=== PATIENT | male | born 1960 | race Hispanic/Latino ===

== ENCOUNTER 2023-04-20 23:08 | Observation (INO) | payer BC ==
[~2023-04-20] VITALS: Ht 165.1 cm; Wt 83.7 kg
[2023-04-20 23:24] LABS: BASOPHILS # (AUTO) 0.08 K/uL (0.00-0.20); BASOPHILS % (AUTO) 0.7 % (0.0-5.0); EOSINOPHILS # (AUTO) 0.26 K/uL (0.00-0.70); EOSINOPHILS % (AUTO) 2.4 % (0.0-8.0); HEMATOCRIT 41.5 % (42-54); IMMATURE GRANULOCYTE ABSOLUTE 0.06 K/uL (0-1); LYMPHOCYTES # (AUTO) 3.9 K/uL (1.0-4.8); LYMPHOCYTES % (AUTO) 36.1 % (21.0-51.0); MEAN CORPUSCULAR HEMOGLOBIN 31.8 pg (27.0-33.0); MEAN CORPUSCULAR HGB CONC 34.2 g/dL (32.0-36.0); MONOCYTES # (AUTO) 1.1 K/uL (0.1-1.0); MONOCYTES % (AUTO) 10.1 % (3.0-13.0); NEUTROPHILS # (AUTO) 5.4 K/uL (1.8-7.7); NEUTROPHILS % (AUTO) 50.1 % (40.0-77.0); PLATELET COUNT (AUTO) 268 K/uL (130-400); RED BLOOD CELL COUNT(AUTO) 4.46 MIL/uL (4.50-6.20); RED CELL DISTRIBUTION WIDTH 11.8 % (11.0-15.5); WHITE BLOOD COUNT (AUTO) 10.8 K/uL (4.8-10.8)
[2023-04-20 23:35] LABS: CREATININE 1.1 mg/dL (0.5-1.5); POTASSIUM 4.2 mmol/L (3.5-5.1)
[2023-04-20 23:38] LABS: INR 0.93 (0.85-1.15); PROTHROMBIN TIME 10.7 SEC (9.6-11.6)
[2023-04-20 23:39] LABS: PARTIAL THROMBOPLASTIN TIME 27.9 SEC (26.3-35.5)
[2023-04-20 23:47] LABS: ALBUMIN 3.9 g/dL (3.5-5.0); BILIRUBIN,TOTAL 0.7 mg/dL (0.2-1.0); TOTAL PROTEIN, SERUM 7.8 g/dL (6.0-8.3)
[2023-04-20] MEDS: NITROGLYCERIN 0.4 MG SL TAB SL PRN (23:59)
[2023-04-21] VITALS (12 sets, daily range): BP systolic 120–147; BP diastolic 65–88; PULSE 64–80; RESP 17–18
[2023-04-21] MEDS ORDERED: CLOPIDOGREL 300MG TAB PO ONE
[2023-04-21] MEDS ORDERED: ASPIRIN 81MG CHEW TAB PO ONE
[2023-04-21] MEDS: NITROGLYCERIN 0.4 MG SL TAB SL PRN (00:15)
[2023-04-21] MEDS ORDERED: ENOXAPARIN SODIUM 40 MG/0.4 ML SYRINGE SQ ONE (00:30)
[2023-04-21] MEDS ORDERED: MORPHINE 4 MG SYG IV PRN (00:30)
[2023-04-21] MEDS ORDERED: MORPHINE 2 MG SYG IV PRN (00:30)
[2023-04-21] MEDS ORDERED: ONDANSETRON 4MG INJ IV PRN (00:30)
[2023-04-21] MEDS ORDERED: ACETAMINOPHEN 325 MG TAB PO PRN ×2 (00:30)
[2023-04-21] MEDS: NITROGLYCERIN 1GM OINT 1 INCH/1GM TD SCH ×4 (00:30→19:55)
[2023-04-21] MEDS ORDERED: ROSU10TA28 PO (00:43)
[2023-04-21] MEDS ORDERED: NITR0.3T11 SL (00:43)
[2023-04-21] MEDS ORDERED: METO25TA6 PO (00:43)
[2023-04-21] MEDS ORDERED: LOSA50TA64 PO (00:43)
[2023-04-21] MEDS: ASPIRIN 81MG CHEW TAB PO SCH (08:49)
[2023-04-21] MEDS ORDERED: METOPROLOL SUCCINATE 25 MG TAB.SR.24H PO SCH (09:00)
[2023-04-21] MEDS: CLOPIDOGREL 75MG TAB PO SCH (09:00)
[2023-04-21] MEDS: FAMOTIDINE 20MG TAB PO SCH (09:00)
[2023-04-21] MEDS: ENOXAPARIN SODIUM 40 MG/0.4 ML SYRINGE SQ SCH (09:00)
[2023-04-21] MEDS ORDERED: LIDOCAINE HCL 400MG/20ML VIAL ONE (10:33)
[2023-04-21] MEDS ORDERED: VERAPAMIL HCL 2.5 MG/ML VIAL ONE (10:34)
[2023-04-21] MEDS ORDERED: IOHEXOL-350 75 ML VIAL IV ONE ×3 (10:34→11:43)
[2023-04-21] MEDS ORDERED: MIDAZOLAM HCL 1 MG/ML 2ML VIAL ONE (10:34)
[2023-04-21] MEDS ORDERED: HEPARIN 10,000 UNIT/10ML (1,000 UNIT/ML) VIAL ONE (10:34)
[2023-04-21] MEDS ORDERED: NITROGLYCERIN 50MG VIAL ONE (10:55)
[2023-04-21] MEDS ORDERED: FENTANYL CITRATE PF 50 MCG/1 ML 2ML VIAL ONE (11:01)
[2023-04-21] MEDS ORDERED: CLOPIDOGREL 300MG TAB ONE (12:31)
[2023-04-21] MEDS: METOPROLOL SUCCINATE 25 MG TAB.SR.24H PO SCH ×2 (13:00→19:52)
[2023-04-21] MEDS ORDERED: 0.9%NACL 1000ML 1,000 ML IV SCH (13:00)
[2023-04-21] MEDS ORDERED: ATORVASTATIN 40 MG TABLET PO SCH (21:00)
[2023-04-22] VITALS: BP 118/72; PULSE 84; RESP 18
[2023-04-22 04:00] VITALS: BP 132/83; PULSE 70; RESP 18
[2023-04-22 05:24] LABS: BASOPHILS # (AUTO) 0.04 K/uL (0.00-0.20); BASOPHILS % (AUTO) 0.5 % (0.0-5.0); EOSINOPHILS # (AUTO) 0.11 K/uL (0.00-0.70); EOSINOPHILS % (AUTO) 1.4 % (0.0-8.0); HEMATOCRIT 37.5 % (42-54); IMMATURE GRANULOCYTE ABSOLUTE 0.03 K/uL (0-1); LYMPHOCYTES # (AUTO) 1.8 K/uL (1.0-4.8); LYMPHOCYTES % (AUTO) 23.6 % (21.0-51.0); MEAN CORPUSCULAR HEMOGLOBIN 31.7 pg (27.0-33.0); MEAN CORPUSCULAR HGB CONC 33.9 g/dL (32.0-36.0); MEAN CORPUSCULAR VOLUME 93.5 fL (79-99); MONOCYTES # (AUTO) 0.8 K/uL (0.1-1.0); MONOCYTES % (AUTO) 10.9 % (3.0-13.0); NEUTROPHILS # (AUTO) 4.9 K/uL (1.8-7.7); NEUTROPHILS % (AUTO) 63.2 % (40.0-77.0); PLATELET COUNT (AUTO) 219 K/uL (130-400); RED BLOOD CELL COUNT(AUTO) 4.01 MIL/uL (4.50-6.20); RED CELL DISTRIBUTION WIDTH 11.9 % (11.0-15.5); WHITE BLOOD COUNT (AUTO) 7.7 K/uL (4.8-10.8)
[2023-04-22] MEDS: NITROGLYCERIN 1GM OINT 1 INCH/1GM TD SCH ×2 (05:28→16:30)
[2023-04-22 05:53] LABS: MAGNESIUM 2.2 mg/dL (1.80-2.40); PHOSPHORUS 3.4 mg/dL (2.5-4.9)
[2023-04-22 08:00] VITALS: O2SAT 96
[2023-04-22 08:06] VITALS: BP 117/69; PULSE 76; RESP 17
[2023-04-22] MEDS ORDERED: Nitroglycerin 0.4MG Sl Tab SL (08:12)
[2023-04-22] MEDS ORDERED: CLOP-31 PO (08:12)
[2023-04-22] MEDS ORDERED: METO25TA3 PO (08:12)
[2023-04-22] MEDS ORDERED: ATOR40TA69 PO (08:12)
[2023-04-22] MEDS ORDERED: ASPI-1005 PO (08:12)
[2023-04-22] MEDS: CLOPIDOGREL 75MG TAB PO SCH (09:36)
[2023-04-22] MEDS: METOPROLOL SUCCINATE 25 MG TAB.SR.24H PO SCH (09:36)
[2023-04-22] MEDS: ASPIRIN 81MG CHEW TAB PO SCH (09:37)
[2023-04-22] MEDS: FAMOTIDINE 20MG TAB PO SCH (09:37)
[2023-04-22] MEDS: ENOXAPARIN SODIUM 40 MG/0.4 ML SYRINGE SQ SCH (09:38)
[2023-04-22 12:00] VITALS: BP 122/79; PULSE 85; RESP 18
[2023-04-22 16:12] VITALS: BP 125/63; PULSE 62; RESP 18
== END 2023-04-22 16:50 | disposition home or self-care (01) ==
LOC: EDH 23:08 → INTOOBSV 04-21 00:15 → EDHIP 04-21 00:15 → 4CH 04-21 02:18
PROVIDERS: ADMIT Internal Medicine; ATTEND Internal Medicine
DX: I24.9 Acute ischemic heart disease, unspecified (principal); I10 Essential (primary) hypertension; E11.9 Type 2 diabetes mellitus without complications; E78.5 Hyperlipidemia, unspecified; Z79.02 Long term (current) use of antithrombotics/antiplatelets; Z79.82 Long term (current) use of aspirin; Z79.899 Other long term (current) drug therapy; Z51.5 Encounter for palliative care; X50.0XXA Overexertion from strenuous movement or load, initial encounter; Y92.59 Other trade areas as the place of occurrence of the external cause; Y93.89 Activity, other specified; Y99.0 Civilian activity done for income or pay
CPT/HCPCS: 99285; 84484 ×4; 80053; 85025 ×2; 85610; 85730; 36415 ×2; 71045; 93005 ×2; 93458; 96374; 96372 ×2; 83880; 85347; 83735; 84100; 80061; 80048; C1769 ×3; C1887 ×3; C1894 ×4; C1874; C1760; C1725; J3010; J3490 ×3; J2270 ×2; J1644 ×3; J2250; J1650 ×2; Q9967 ×3; C9600; G0378 ×2; 99156; 99157

== ENCOUNTER 2024-11-23 01:16 | Emergency (ER) | payer BC ==
[~2024-11-23] VITALS: Ht 157.5 cm; Wt 93.9 kg
[~2024-11-23 01:16] MED LIST: ASPI-1005 PO; ATOR40TA69 PO; CLOP-31 PO; METO25TA3 PO; Nitroglycerin 0.4MG Sl Tab SL
[2024-11-23 01:18] VITALS: TEMP 97.8
[2024-11-23 01:59] LABS: BASOPHILS # (AUTO) 0.05 K/uL (0.00-0.20); BASOPHILS % (AUTO) 0.7 % (0.0-5.0); EOSINOPHILS % (AUTO) 1.4 % (0.0-8.0); IMMATURE GRANULOCYTE ABSOLUTE 0.04 K/uL (0-1); LYMPHOCYTES # (AUTO) 1.3 K/uL (1.0-4.8); LYMPHOCYTES % (AUTO) 17.1 % (21.0-51.0); MEAN CORPUSCULAR HEMOGLOBIN 32.8 pg (27.0-33.0); MEAN CORPUSCULAR HGB CONC 35.3 g/dL (32.0-36.0); MONOCYTES # (AUTO) 0.8 K/uL (0.1-1.0); MONOCYTES % (AUTO) 10.3 % (3.0-13.0); NEUTROPHILS # (AUTO) 5.2 K/uL (1.8-7.7); PLATELET COUNT (AUTO) 210 K/uL (130-400); RED CELL DISTRIBUTION WIDTH 12.3 % (11.0-15.5); WHITE BLOOD COUNT (AUTO) 7.4 K/uL (4.8-10.8)
[2024-11-23 02:05] LABS: CREATININE 0.8 mg/dL (0.5-1.3); POTASSIUM 3.4 mmol/L (3.5-5.1)
[2024-11-23] MEDS: ketOROlac 15MG/ML VIAL (15MG/ML) IM ONE (03:26)
[2024-11-23] MEDS: ORPHENADRINE 60MG/2ML IM ONE (03:27)
--- NOTE | 2024-11-23 04:24 | ERN ---
General Chief Complaint: Shoulder Injury/Pain Stated Complaint: RT SHOULDER PAIN Time Seen by MD: 01:19 Time Seen by Midlevel: 01:19 Source: patient History of Present Illness Initial Comments 64-year-old male who presents to the emergency department due to right shoulder pain onset 3 hours. Patient denies any chest pain, shortness of breath, numbness tingling or further associated symptoms. PMHx CAD, hypercholesterolemia, HTN Allergies: Coded Allergies: No Known Drug Allergies (Unverified Allergy, Unknown, 04/20/23) Home Meds Active Scripts [Nitroglycerin 0.4MG Sl Tab] 0.4 MG TAB.SUBL No Conflict Check, 0.4 MG SL AD PRN for CHEST PAIN, #30 3 Refills Prov:KAIN ELAINE MD 04/22/23 Metoprolol Succinate (Toprol Xl) 25 Mg Tab.er.24h, 25 MG PO BID, #30 TAB 3 Refills Prov:KAIN ELAINE MD 04/22/23 Clopidogrel Bisulfate (Plavix) 75 Mg Tablet, 75 MG PO DAILY, #30 TAB 3 Refills Prov:KAIN ELAINE MD 04/22/23 Atorvastatin Calcium (LIPITOR) 40 Mg Tablet, 40 MG PO HS, #30 TAB 2 Refills Prov:KAIN ELAINE MD 04/22/23 Aspirin (ASPIRIN 81MG CHEW TAB) 81 Mg Tab.chew, 81 MG PO DAILY, #30 TAB.CHEW 3 Refills Prov:KAIN ELAINE MD 04/22/23 Past Medical History Past Medical History: CAD, High Cholesterol, Hypertension Past Surgical History: Other Surgical History Other: LT WRIST CYST REMOVAL , CARDIAC STENTS Family History Family History: CAD, DM, HTN Social History Social History: ETOH, Lives with family ROS Dictation Constitutional: Negative for fever,chills, and weight loss Eyes: Negative for injury, pain,redness, and discharge ENT: Negative for injury,pain or swelling Cardiovascular: Negative for chest pain, palpitations, and edema Respiratory: Negative for shortness of breath, cough, and wheezing, Abdomen/GI: Negative for abdominal pain, nausea, vomiting, diarrhea, and constipation Back: Negative for injury and pain : Negative for painful urination, bleeding or discharge MS/Extremity: Positive for right shoulder pain Negative for injury and deformity Skin: Negative for rash, and discoloration Neuro: Negative for headache, weakness, numbness, tingling, and seizure Psych: Negative for suicide ideation, homicidal ideation, and hallucinations Physical Exam Physical Exam Dictation General: awake, alert, no acute distress Head/Face: Normocephalic, atraumatic Eyes: PERRL, EOMI, normal conjunctiva ENT: oral cavity clear, oral mucosa moist Neck: Supple, normal range of motion Cardiovascular: RRR, normal S1/S2 Respiratory: CTAB, no respiratory distress, no rales or wheezes Skin: Warm, dry, normal turgor, no rash MS/Extremity: Pulses equal, no cyanosis, neurovascular intact, FROM. Right shoulder limited range of motion restricted by pain, tenderness to the anterior aspect of the shoulder, no obvious deformities Neuro: COAx4, GCS 15, strength 5/5, CN 2-12 intact, normal cerebellar exam, normal gait, Psych: Normal behavior, mood, and affect normal Results Laboratory and Microbiology Lab and Micro Result Laboratory Tests Test 11/23/24 01:50 11/23/24 03:44 White Blood Count 7.4 K/uL (4.8-10.8) Red Blood Count 4.30 MIL/uL (4.50-6.20) L Hemoglobin 14.1 g/dL (14.0-18.0) Hematocrit 40.0 % (42-54) L Mean Corpuscular Volume 93.0 fL (79-99) Mean Corpuscular Hemoglobin 32.8 pg (27.0-33.0) Mean Corpuscular Hemoglobin Concent 35.3 g/dL (32.0-36.0) Red Cell Distribution Width 12.3 % (11.0-15.5) Platelet Count 210 K/uL (130-400) Mean Platelet Volume 9.0 fL (7.5-10.5) Immature Granulocyte % (Auto) 0.5 % (0-1) Neutrophils (%) (Auto) 70.0 % (40.0-77.0) Lymphocytes (%) (Auto) 17.1 % (21.0-51.0) L Monocytes (%) (Auto) 10.3 % (3.0-13.0) Eosinophils (%) (Auto) 1.4 % (0.0-8.0) Basophils (%) (Auto) 0.7 % (0.0-5.0) Neutrophils # (Auto) 5.2 K/uL (1.8-7.7) Lymphocytes # (Auto) 1.3 K/uL (1.0-4.8) Monocytes # (Auto) 0.8 K/uL (0.1-1.0) Eosinophils # (Auto) 0.10 K/uL (0.00-0.70) Basophils # (Auto) 0.05 K/uL (0.00-0.20) Absolute Immature Granulocyte (auto 0.04 K/uL (0-1) Nucleated Red Blood Cells 0.0 % (0.0-0.19) Sodium Level 136 mmol/L (136-145) Potassium Level 3.4 mmol/L (3.5-5.1) L Chloride Level 101 mmol/L (101-111) Carbon Dioxide Level 26 mmol/L (21-32) Blood Urea Nitrogen 8 mg/dL (7-18) Creatinine 0.8 mg/dL (0.5-1.3) Glomerular Filtration Rate Calc 100 mL/min (>90) Random Glucose 127 mg/dL (70-105) H Total Calcium 8.1 mg/dL (8.5-10.1) L Troponin I High Sensitivity 36 ng/L (4-75) 36 ng/L (4-75) Labs Reviewed?: Yes EKG/XRAY/US/CT/MRI EKG Comment Date: 11/23/2024 Time: 021 Rate: 80 EKG interpretation: Normal sinus rhythm, right axis deviation, no STEMI Reviewed by ED Attending MDM MDM: Differential diagnosis: Sprain, strain, rotator cuff injury, fracture, dislocation, SC Rationale: 64-year-old male who presents to the emergency department due to right shoulder pain onset 3 hours. Patient denies any chest pain, shortness of breath, numbness tingling or further associated symptoms. PMHx CAD, hypercholesterolemia, HTN Right shoulder limited range of motion restricted by pain, tenderness to the anterior aspect of the shoulder, no obvious deformities, neurovascularly intact. Labs obtained are nonspecific, mild hypokalemia 3.4 for which K-Lyte was administered. Troponins within normal limit. EKG within normal limits. Shoulder x-rays obtained with no indications of fractures or dislocations. Patient was administered Norflex and ketorolac in the ED. On re-examination patient verbalized pain had improved. Patient was educated on findings and diagnosis. Advised to follow up with PCP. Return to the emergency department if any worsening symptoms. Patient verbalized understanding. Patient stable for discharge. There are no social concerns with this patient. I independently interpreted the test that were performed, results were reviewed by me and considered findings on radiology if ordered. Medical management and examination interpretation discussions were had by me with other qualified healthcare professionals as indicated for the patient's care. ED Course Orders Procedure Category Date Status Time Cbc With Differential LAB 11/23/24 Complete 01:37 Basic Metabolic Panel LAB 11/23/24 Complete 01:37 Troponin I High LAB 11/23/24 Complete Sensitivity 01:37 12 Lead Ekg Tracing- EKG 11/23/24 Logged Technical 01:37 Shoulder Comp 2+Vws Rt RAD 11/23/24 Taken 01:37 Orphenadrine Citrate PHA 11/23/24 Complete (Norflex) 03:30 Ketorolac PHA 11/23/24 Complete Tromethamine 15mg/Ml 03:30 Troponin I High LAB 11/23/24 Complete Sensitivity 03:14 Potassium Bicarb/Cit PHA 11/23/24 Logged Ac 25meq (K-Lyte Ta 04:30 Current Medications Medications (Trade) Dose Ordered Sig/Roberto Route PRN Reason Start Time Stop Time Status Last Admin Dose Admin Ketorolac Tromethamine (toRADol) 15 mg ONCE ONCE IM 11/23/24 03:30 11/23/24 03:31 DC 11/23/24 03:26 Orphenadrine Citrate (Norflex) 60 mg ONCE ONCE IM 11/23/24 03:30 11/23/24 03:31 DC 11/23/24 03:27 Potassium Bicarbonate (K-Lyte Tablet Eff 25 Meq Tablet.eff) 25 meq ONCE ONCE PO 11/23/24 04:30 11/23/24 04:31 UNV Vital Signs Date Time Temp Pulse Resp B/P (MAP) Pulse Ox O2 Delivery O2 Flow Rate FiO2 11/23/24 02:22 81 18 119/78 95 Room Air* 0 21 11/23/24 01:18 97.9 89 16 132/91 96 Room Air DX & DISP Disposition: Discharge Departure Impression: Primary Impression: Right shoulder pain Condition: Stable Additional Instructions: Discharge home. Rest. Follow up with primary care in 24 hours. Return to the ER for any acute changes or worsening symptoms. If any medications were prescribed take as directed. Okay to continue home medications unless otherwise discussed during your visit in the emergency room today. Patient was also advised to follow-up with primary care physician in 1 to 2 days for continued monitoring. Referrals: KENNETH ARBOLEDA (PCP) I performed the substantive portion of the visit. I have reviewed and personally made and approve the management plan that is documented in the notes by myself or the RAYMOND. I acknowledge full responsibility for the patient's management plan. DILMA LARIOS Nov 23, 2024 04:24
[2024-11-23] MEDS: PoTASSium BIcarbonate/CIT AC 25 MEQ TABLET.EFF PO ONE (04:27)
[2024-11-23 04:33] VITALS: BP 120/63; PULSE 75; RESP 18; O2SAT 95
--- NOTE | 2024-11-23 05:31 | EKG ---
[facility] Test Date: 2024-11-23 Test Time: 02:14:34 Pat Name: YOBANI HINES Department: [facility] Room: Gender: M Programming Specialist: [id number] 1960 Requested By: DILMA LARIOS Order Number: [id number] Reading MD: Khushbu Keita Measurements Intervals [place] Rate: 80 P: -3 MD: 161 QRS: 92 QRSD: 99 T: 44 QT: 397 QTc: 459 Interpretive Statements Sinus rhythm Right axis deviation Compared to ECG 04/21/2023 09:52:32 Right-axis deviation now present Electronically Signed On 11-23-2024 08:46:10 GROCERY DEPARTMENT MANAGER by Khushbu Keita Please click the below link to view image of tracing.
--- NOTE | 2024-11-23 07:47 | HMCIMG ---
RIGHT SHOULDER RADIOGRAPHS - 2-3 VIEWS INDICATION: Pain COMPARISON: None FINDINGS: No fracture or dislocation identified. Acromioclavicular and glenohumeral alignments are well maintained. Mild acromioclavicular joint osteoarthropathy. Visible portions of the right clavicle are intact. Mild to moderate lateral arch outlet narrowing. IMPRESSION: No evidence for fracture or dislocation.
[2024-11-23] MEDS ORDERED: MELO-108 PO (18:12)
== END 2024-11-23 04:45 | disposition home or self-care (01) ==
LOC: EDH 01:16
DX: M25.511 Pain in right shoulder (principal); E78.00 Pure hypercholesterolemia, unspecified; I10 Essential (primary) hypertension; I25.10 Atherosclerotic heart disease of native coronary artery without angina pectoris; Z79.02 Long term (current) use of antithrombotics/antiplatelets; Z79.82 Long term (current) use of aspirin; Z79.899 Other long term (current) drug therapy; Z95.5 Presence of coronary angioplasty implant and graft
CPT/HCPCS: 99284; 84484 ×2; 80048; 85025; 36415; 73030; 96372 ×2; 93005; J1885; J2360

== ENCOUNTER 2025-03-22 02:32 | Emergency (ER) | payer BC ==
[~2025-03-22] VITALS: Ht 165.1 cm; Wt 90.7 kg
[~2025-03-22 02:32] MED LIST changes: +MELO-108 PO
[2025-03-22] MEDS: morPHINE 4 MG SYG IV ONE (03:18)
--- NOTE | 2025-03-22 03:19 | ERN ---
General Chief Complaint: Shoulder Injury/Pain Stated Complaint: SHOULDER INJURY Time Seen by MD: 02:39 History of Present Illness Initial Comments Mr Ceballos is a 64-year-old male who comes in with concerns of left shoulder pain after having a fall. Patient apparently was lifting a moving items. He reports tripping on a board and landing awkwardly with a direct trauma to the left shoulder. He describes immediate severe pain inability to move his left arm he does not hear you do not hear a definite pop or snap but reports he arm feeling at a place with the pain over the left anterior shoulder. Bystanders offered to reduce it but no manipulation was performed. Patient is experiencing pain with minimal passive motion and limited active range of motion. Patient has no numbness or tingling reported at this time Allergies: Coded Allergies: No Known Drug Allergies (Unverified Allergy, Unknown, 04/20/23) Home Meds Active Scripts Meloxicam (Meloxicam) 15 Mg Tablet, 15 MG PO DAILY PRN for PAIN for 10 Days, #10 TAB Prov:ISAK VELASQUEZ DO 11/23/24 [Nitroglycerin 0.4MG Sl Tab] 0.4 MG TAB.SUBL No Conflict Check, 0.4 MG SL AD PRN for CHEST PAIN, #30 3 Refills Prov:KAIN ELAINE MD 04/22/23 Metoprolol Succinate (Toprol Xl) 25 Mg Tab.er.24h, 25 MG PO BID, #30 TAB 3 Refills Prov:KAIN ELAINE MD 04/22/23 Clopidogrel Bisulfate (Plavix) 75 Mg Tablet, 75 MG PO DAILY, #30 TAB 3 Refills Prov:KAIN ELAINE MD 04/22/23 Atorvastatin Calcium (LIPITOR) 40 Mg Tablet, 40 MG PO HS, #30 TAB 2 Refills Prov:KAIN ELAINE MD 04/22/23 Aspirin (ASPIRIN 81MG CHEW TAB) 81 Mg Tab.chew, 81 MG PO DAILY, #30 TAB.CHEW 3 Refills Prov:KAIN ELAINE MD 04/22/23 Past Medical History Past Medical History: High Cholesterol, Hypertension Past Surgical History: None Surgical History Other: LT WRIST CYST REMOVAL , CARDIAC STENTS Family History Family History: CAD, DM, HTN Social History Social History: ETOH, Lives with family ROS Dictation Constitutional: Negative for fever,chills, and weight loss Eyes: Negative for injury, pain,redness, and discharge ENT: Negative for injury,pain or swelling Cardiovascular: Negative for chest pain, palpitations, and edema Respiratory: Negative for shortness of breath, cough, and wheezing, Abdomen/GI: Negative for abdominal pain, nausea, vomiting, diarrhea, and constipation Back: Negative for injury and pain : Negative for injury, bleeding and discharge MS/Extremity: Left shoulder injury Skin: Negative for rash, and discoloration Neuro: Negative for headache, weakness, numbness, tingling, and seizure Psych: Negative for suicide ideation, homicidal ideation, and hallucinations Physical Exam Physical Exam Dictation General: 64-year-old male in the stress holding left arm across the chest. Head/Face: Normocephalic, atraumatic Eyes: PERRL, EOMI, vision at baseline ENT: oral cavity clear, TMs clear, no signs of infection Neck: Trachea midline, supple, no nuchal rigidity Cardiovascular: RRR, normal S1/S2, No MRGs, no JVD Respiratory: CTAB, no respiratory distress, No rales or wheezes Abdomen: Soft, non-tender, non-distended, normal bowel sounds, no guarding or rebound. Skin: Warm, dry, normal turgor, no rash MS/Extremity: Visible deformity of the left shoulder, limited range of motion with pain abduction and external rotation. Tenderness over anterior shoulder. No ecchymosis or open injury. No bone crepitus. Patient has radial pulse of 2 +sensation is intact in the axillary radial and ulnar and median distributions. Neuro: COAx4, GCS 15, strength 5/5, CN 2-12 intact, normal cerebellar exam, normal gait, Psych: Normal behavior, mood, and affect normal MDM Patient did have postreduction films of his left shoulder done which showed good alignment. Patient at this time will be discharged for follow up with Orthopedics/PT advised patient That he will need to make appointments patient verbalized understanding MDM: Differential diagnosis: Anterior shoulder dislocation Rationale: Tests considered and ordered secondary to shared decision making include: Previous outside records reviewed: Old ER visits. Risk of complication and/or morbidity or mortality of patient management: None Medications-Per medication reconciliation Need for hospitalization: Patient does not meet criteria for hospitalization. Need for emergency major/minor surgery: No There are no social concerns with this patient. Prescription drug management Prescriptions will include symptomatic care Patient's prior external medical records from other ER visits were reviewed by me as indicated. Prior testing and results from previous visits were reviewed. Prior tests were taken into account with medical decision making and resource utilization, independent historian/historians were used to obtain complete medical history. I independently interpreted the test that were performed, results were reviewed by me and considered findings on radiology if ordered. Medical management and examination interpretation discussions were had by me with other qualified healthcare professionals as indicated for the patient's care. ED Course Orders Procedure Category Date Status Time Morphine 4mg Syg PHA 03/22/25 Complete (Morphine 4mg Syg) 03:00 Shoulder Ltd 1vw Lt RAD 03/22/25 Resulted 02:49 Fentanyl Citrate Pf PHA 03/22/25 Complete 0.05 Mg/Ml (Fentanyl 03:50 Midazolam Hcl (Versed) PHA 03/22/25 Complete 03:50 Shoulder Comp 2+Vws Lt RAD 03/22/25 Resulted 03:59 Propofol 20ml Vial PHA 03/22/25 Complete (Diprivan 20ml Vial) 04:13 Fentanyl Citrate Pf PHA 03/22/25 Complete 0.05 Mg/Ml (Fentanyl 04:00 Midazolam Hcl (Versed) PHA 03/22/25 Complete 05:30 Current Medications Medications (Trade) Dose Ordered Sig/Roberto Route PRN Reason Start Time Stop Time Status Last Admin Dose Admin Fentanyl Citrate (FENTanyl CITRate PF 50 MCG/ 1 ML 2ML VIAL) 100 mcg ONCE ONCE IVP 03/22/25 04:00 03/22/25 05:08 DC Fentanyl Citrate (FENTanyl CITRate PF 50 MCG/ 1 ML 2ML VIAL) 100 mcg STK-MED ONCE .ROUTE 03/22/25 03:50 03/22/25 03:50 DC 03/22/25 04:05 Midazolam HCl (Versed) 2 mg ONCE ONCE IVPB 03/22/25 05:30 03/22/25 05:31 DC Midazolam HCl (Versed) 2 mg STK-MED ONCE .ROUTE 03/22/25 03:50 03/22/25 03:50 DC 03/22/25 04:05 Morphine Sulfate (morPHINE 4MG SYG) 4 mg ONCE ONCE IV 03/22/25 03:00 03/22/25 03:01 DC 03/22/25 03:18 Propofol (DIPRivan 20ML VIAL) 200 mg STK-MED ONCE IV 03/22/25 04:13 03/22/25 04:18 DC Vital Signs Date Time Temp Pulse Resp B/P (MAP) Pulse Ox O2 Delivery O2 Flow Rate FiO2 03/22/25 05:00 90 20 109/72 Room Air* 0 21 03/22/25 04:00 84 20 128/75 Room Air* 0 21 03/22/25 03:23 97.7 78 20 109/67 Room Air* 0 21 03/22/25 02:33 98.8 79 20 154/98 99 Room Air 0 Joint Reduction Joint Reduction : Joint Reduction Site: shoulder (L) Conscious Sedation: Yes Reduction Attempts: 1 Pre-Procedure NV Exam: Yes Post-Procedure NV Exam: Yes post joint reduction film: no fracture seen DX & DISP Disposition: Discharge Departure Impression: Primary Impression: Anterior dislocation of left shoulder Condition: Stable Additional Instructions: Please continue to wear left shoulder immobilizer until you see orthopedics. You will likely need an MRI of your left shoulder to diagnose any further rotator cuff/tendon injuries. Referrals: KENNETH ARBOLEDA (PCP) ERNESTINA ESCALANTE MD Mar 22, 2025 03:19
--- NOTE | 2025-03-22 03:32 | HMCIMG ---
EXAM: CR Left Shoulder, 1 view. CLINICAL HISTORY: Fall. Injury. COMPARISON: None provided. FINDINGS: Anteroinferior dislocation of the glenohumeral joint without acute fracture. Mild degenerative changes in the acromioclavicular joint. Diffuse soft tissue swelling around the shoulder. IMPRESSION: Anteroinferior dislocation of the glenohumeral joint without acute fracture. /[place]equ[place]
[2025-03-22] MEDS: MIDAZOLAM HCL 1 MG/ML 2ML VIAL ONE (04:05)
[2025-03-22] MEDS: FENTanyl CITRate PF 50 MCG/1 ML 2ML VIAL ONE (04:05)
[2025-03-22] MEDS: proPOFol 10 MG/ML 20ML VIAL IV ONE (04:58)
[2025-03-22] MEDS: MIDAZOLAM HCL 1 MG/ML 2ML VIAL IVPB ONE (05:08)
[2025-03-22] MEDS: FENTanyl CITRate PF 50 MCG/1 ML 2ML VIAL IVP ONE (05:08)
--- NOTE | 2025-03-22 05:19 | HMCIMG ---
EXAM: CR Left Shoulder, 1 view. CLINICAL HISTORY: Postreduction. COMPARISON: Radiograph of the left shoulder from the same date. FINDINGS: The post-reduction radiograph shows good anatomic alignment of the glenohumeral joint. No acute fracture. Mild acromioclavicular arthropathy. Diffuse soft tissue swelling around the left shoulder. IMPRESSION: The post-reduction radiograph shows good anatomic alignment of the glenohumeral joint. /Morrison
[2025-03-22 06:00] VITALS: BP 129/62; PULSE 77; RESP 18; TEMP 98
== END 2025-03-22 06:11 | disposition home or self-care (01) ==
LOC: EDH 02:32
DX: S43.015A Anterior dislocation of left humerus, initial encounter (principal); E78.00 Pure hypercholesterolemia, unspecified; I10 Essential (primary) hypertension; Z79.02 Long term (current) use of antithrombotics/antiplatelets; Z79.82 Long term (current) use of aspirin; Z79.899 Other long term (current) drug therapy; Z95.5 Presence of coronary angioplasty implant and graft; W18.39XA Other fall on same level, initial encounter; Y93.89 Activity, other specified; Y92.89 Other specified places as the place of occurrence of the external cause; Y99.8 Other external cause status
CPT/HCPCS: 99285; 23650; 96374; 73030; 99152; 73020; J3010; J2250; J2704; J2270; J3490

== ENCOUNTER → 2025-04-03 | Outpatient (CLI) | payer BC ==
--- NOTE | 2025-04-04 04:30 | HMCIMG ---
EXAM: MR Left shoulder without contrast. CLINICAL HISTORY: Recurrent dislocation. TECHNIQUE: Multisequence, multiplanar magnetic resonance images of the left shoulder. CONTRAST: None. COMPARISON: X-ray left shoulder dated 03/22/25. FINDINGS: 1.7 x 0.3 cm defect at the postero-superior aspect of the humeral head with mild marrow edema, suggestive of Hill-Sachs lesion. Moderate acromioclavicular joint osteoarthritis. Complete tear of the supraspinatus and infraspinatus tendons with retraction up to the gleno-humeral joint level. There is resultant cranial migration of the humeral head and glenoidization of the distal acromion. The subscapularis and teres minor tendons are intact. Mild fluid in the subacromial subdeltoid bursal space. Mild glenohumeral joint osteoarthritis. Tear of the anteroinferior glenoid labrum. Mild glenohumeral joint effusion. Multiple ganglion cysts are evident at the myotendinous junction of the subscapularis extending up to the superior subscapularis recess, measuring up to 3.3 cm. The long head of the biceps tendon is intact including the superior labral attachment. Intact intrinsic ligaments. Mild edema in the rotator cuff muscle bellies. IMPRESSION: 1. Complete tear of the supraspinatus and infraspinatus tendons with retraction to the glenohumeral joint level, resultant cranial migration of the humeral head, and glenoidization of the distal acromion. Mild subacromial subdeltoid bursitis. 2. Hill-Sachs lesion measuring 1.7 x 0.3 cm at postero-superior humeral head with mild marrow edema. 3. Anteroinferior glenoid labral tear suggestive of Bankart's lesion. 4. Multiple ganglion cysts at the subscapularis myotendinous junction extending to the superior subscapularis recess, measuring up to 3.3 cm. Mild glenohumeral joint effusion. 5. Moderate acromioclavicular joint osteoarthritis. 6. Mild glenohumeral joint osteoarthritis. 7. Mild edema in rotator cuff muscle bellies. Radiographs dated 03/22/25 reveal bailey-inferior dislocation of the humeral head, with a post-reduction radiograph showing normal anatomical alignment. /Kashif
== END | disposition home or self-care (01) ==
LOC: RAH 13:51
PROVIDERS: ATTEND Internal Medicine
DX: M75.122 Complete rotator cuff tear or rupture of left shoulder, not specified as traumatic (principal); S43.432A Superior glenoid labrum lesion of left shoulder, initial encounter; M19.012 Primary osteoarthritis, left shoulder; M24.412 Recurrent dislocation, left shoulder; X58.XXXA Exposure to other specified factors, initial encounter; Y93.89 Activity, other specified; Y92.89 Other specified places as the place of occurrence of the external cause; Y99.8 Other external cause status
CPT/HCPCS: 73221

== ENCOUNTER 2025-04-18 06:10 | Day surgery (SDC) | payer BC ==
[2025-04-16 11:05] LABS: IMMATURE GRANULOCYTE ABSOLUTE 0.03 K/uL (0-1); NUCLEATED RED BLOOD CELLS 0.0 % (0.0-0.19); PLATELET COUNT (AUTO) 209 K/uL (130-400); RED BLOOD CELL COUNT(AUTO) 4.42 MIL/uL (4.50-6.20); RED CELL DISTRIBUTION WIDTH 12.1 % (11.0-15.5); WHITE BLOOD COUNT (AUTO) 7.6 K/uL (4.8-10.8)
[2025-04-16 11:10] VITALS: BP 124/75; PULSE 75; RESP 18; TEMP 97
[2025-04-16 11:15] LABS: CREATININE 0.8 mg/dL (0.5-1.3); GLOMERULAR FILTR. RATE CALC 100.0 mL/min (>90); GLUCOSE,RANDOM 109.0 mg/dL (70-105); SODIUM SERUM 136.0 mmol/L (136-145); UREA NITROGEN, BLOOD 12.0 mg/dL (7-18)
[2025-04-16 11:34] LABS: INR 1.02 (0.85-1.15)
[~2025-04-18] VITALS: Ht 165.1 cm; Wt 92.4 kg
[2025-04-18] VITALS (13 sets, daily range): BP systolic 103–138; BP diastolic 62–78; PULSE 59–79; RESP 14–19; TEMP 96–97.3
[~2025-04-18 06:10] MED LIST changes: -ASPI-1005 PO; +ASPI-1443 PO; -ATOR40TA69 PO; -CLOP-31 PO; +LOSA25TA41 PO; -MELO-108 PO; +METO-408 PO; -METO25TA3 PO; -Nitroglycerin 0.4MG Sl Tab SL; +ROSU40TA88 PO
[2025-04-18] MEDS: LACTATED RINGERS 1000ML 1,000 ML IV ONE (07:23)
[2025-04-18] MEDS ORDERED: LIDOCAINE PF 100MG/5ML (2%) SYRINGE 5ML ONE (09:25)
[2025-04-18] MEDS ORDERED: SUCCINYLCHOLINE CHLORIDE 20 MG/ML 10 ML VIAL ONE (09:25)
[2025-04-18] MEDS ORDERED: MIDAZOLAM HCL 1 MG/ML 2ML VIAL ONE (09:26)
[2025-04-18] MEDS ORDERED: GLYCOPYRROLATE 0.2 MG/ML 5 ML VIAL ONE (13:18)
[2025-04-18] MEDS ORDERED: NEOSTIGMINE METHYLSULFATE 1MG/ML IV ONE (13:18)
[2025-04-18] MEDS ORDERED: CYCL-309 PO (13:41)
[2025-04-18] MEDS ORDERED: DOCU-116 PO (13:41)
[2025-04-18] MEDS ORDERED: HYDR-4060 PO (13:41)
--- NOTE | 2025-04-18 16:02 | OP ---
Operative Note: DATE OF PROCEDURE: 04/18/25 SURGEON: FABIENNE MADRID MD TUNNEL MUCKER: [place] ANESTHESIA: General and interscalene block ANESTHESIOLOGIST/HORSE WRANGLER: Nishant Xiao CRNA PREOPERATIVE DIAGNOSIS: Left shoulder rotator cuff tear, biceps tendinitis, labral tear, subacromial impingement, acromioclavicular joint osteoarthritis POSTOPERATIVE DIAGNOSIS: Left shoulder rotator cuff tear biceps tendinitis, labral tear, subacromial impingement, acromioclavicular joint osteoarthritis PROCEDURE: Left shoulder arthroscopic rotator cuff repair, subacromial decompression, distal clavicle excision, biceps tenodesis, labral debridement ESTIMATED BLOOD LOSS: 300 cc FINDINGS: On inserting the arthroscope into the joint we noted there to be a large retracted tear involving the supraspinatus and infraspinatus. The long head of the biceps was intact foot showed peeling back at its insertion to the labrum. Diffuse degenerative changes in the labrum with tearing and frayed edges. mild degenerative changes to the cartilage of the glenoid with diffuse grade 2 chondromalacia. Tenodesis of long head of the biceps was performed. We then repositioned instruments into the subacromial space with five suture anchors placed to repair the rotator cuff with the SpeedBridge and one extra medial row anchor. We then addressed the lateral spurs in the acromion with the bur. The bur device was then used to excise the distal clavicle at the acromioclavicular joint. INDICATIONS: 64-year-old male with a history of left shoulder pain. They were failing conservative management and found on MRI to have a large tear of the rotator cuff in addition to signs concerning for biceps tendinitis. Clinically they were also symptomatic from the acromioclavicular joint and subacromial impingement. After discussion of the risk, benefits, and alternatives, the patient voluntarily agreed to undergo the aforementioned procedure. DESCRIPTION OF PROCEDURE: Patient was properly identified in the preoperative holding area. Surgical site marking was verified and surgery consent reviewed. The patient was then taken to the operating room and placed in supine position on the OR table. After induction of general anesthesia, preoperative antibiotics were given, all bony prominences were well-padded as the patient was transitioned into beachchair position. The left upper extremity was then prepped and draped in usual sterile fashion. Surgical timeout was done verifying correct surgery, side, site, and location to be performed. We then began the procedure by using an 18-gauge spinal needle to inject the shoulder joint with normal saline to distend the joint capsule. A posterior lateral portal was established using 11 blade and we inserted our arthroscope through this portal. We established an anterior portal using needle localization under direct visualization and placed a working cannula through this portal. We then performed a diagnostic arthroscopy with the aforementioned findings. We then elected to perform a arthroscopic biceps tenodesis using the Arthrex loop N Tack system. The FiberWire was placed around and through the biceps in standard fashion and tacked down in the bicipital groove. We then debrided the he tearing edges of the labrum back to a stable leading edge. We then evaluated the tear off of the insertion of the the entire supraspinatus transitioning into the infraspinatus tendons and noted this to be sizable. We then repositioned the arthroscope into the subacromial space and made a lateral working. We debr ided the footprint of the insertion site back to healthy bone. Due to the size of the tear we elected to use a double row construct to repair this. We used the Arthrex SpeedBridge in addition to when additional medial row anchor Using the scorpion suture passer device, we then passed the 3 fiber tapes through the rotator cuff. These were then secured to the humerus using two SwiveLock anchors to comprise our lateral row. We then began to address the subacromial space resecting the lateral spurs using the bur device. We removed a proximally 2-3 mm of bone from the undersurface of the acromion. We then identified the acromioclavicular joint where we resected, using the bur, the lateral 8 mm of the distal clavicle. We then removed as much of the arthroscopic fluid as possible and removed the arthroscopic instruments and camera. We expressed some the remaining fluid from the surrounding soft tissues. 3-0 nylon was then used to close the skin portals. Sterile soft dressing was applied. Patient was then placed into a shoulder immobilizer, awakened from anesthesia, and taken the recovery room in stable condition. FABIENNE MADRID MD Apr 18, 2025 16:02
== END 2025-04-18 14:55 | disposition home or self-care (01) ==
LOC: DAH 06:10
PROVIDERS: ATTEND Student in an Organized Health Care Education/Training Program
DX: M75.122 Complete rotator cuff tear or rupture of left shoulder, not specified as traumatic (principal); M19.012 Primary osteoarthritis, left shoulder; S43.005D Unspecified dislocation of left shoulder joint, subsequent encounter; M24.112 Other articular cartilage disorders, left shoulder; M94.212 Chondromalacia, left shoulder; I10 Essential (primary) hypertension; E78.5 Hyperlipidemia, unspecified; K21.9 Gastro-esophageal reflux disease without esophagitis; E66.9 Obesity, unspecified; I25.2 Old myocardial infarction; Z79.82 Long term (current) use of aspirin; Z68.32 Body mass index [BMI] 32.0-32.9, adult; Z79.899 Other long term (current) drug therapy; Z79.01 Long term (current) use of anticoagulants; W19.XXXD Unspecified fall, subsequent encounter
CPT/HCPCS: 80048; 85025; 85610; 85730; 36415; 29827; 64415; 29828; 29826; 29824; A4663; J7040; J7030; J7120; J3010; J0330; J0169 ×3; J3490 ×4; J2003; J2250; J2704; J2405; J2710; J2371; J0690 ×2; A6223; A4649; C1713 ×3; A5120; A4215; A4222; A4221; A4216; A4450; A4223 ×2; A4600